=== PATIENT | male | born 1975 | race Caucasian/White ===

== ENCOUNTER → 2020-04-20 09:08 | Outpatient (BNVA) | payer MEDICARE, MEDICAID, SELFPAY | PROVIDERS: PCP Family Medicine; Referring Provider Family Medicine; Visit Provider Internal Medicine Endocrinology, Diabetes & Metabolism | DX: E10.65 Type 1 diabetes mellitus with hyperglycemia (principal); E10.319 Type 1 diabetes mellitus with unspecified diabetic retinopathy without macular edema; E10.21 Type 1 diabetes mellitus with diabetic nephropathy; E55.9 Vitamin D deficiency, unspecified; Z79.899 Other long term (current) drug therapy | CPT/HCPCS: 99212 ==

== ENCOUNTER 2020-04-22 12:02 | Outpatient (REF) | payer MEDICARE, MEDICAID, SELFPAY ==
[2020-04-22 14:38] LABS: Estimated Average Glucose 220 mg/dL; Hemoglobin A1c % 9.3 %
[2020-04-22 15:17] LABS: Alanine Aminotransferase 20 U/L (0-40); Alkaline Phosphatase 59 U/L (39-117); Anion Gap 10 (12-20); Aspartate Amino Transferase 20 U/L (5-37); Bilirubin Total 0.5 mg/dL (0.0-1.0); Blood Urea Nitrogen 23 mg/dL (9-16); Calcium 8.2 mg/dL (8.4-10.2); Carbon Dioxide 32 mmol/L (22-29); Chloride 104 mmol/L (96-108); Cholesterol 136 mg/dL; Estimated Glomerular Filt Rate > 60; Glucose Fasting 288 mg/dL (60-99); HDL Cholesterol 68 mg/dL; LDL Cholesterol Calculated 63 mg/dl; Potassium 4.4 mmol/l (3.3-5.1); Sodium 142 mmol/L (135-145); Total Protein 6.5 g/dL (6.5-8.0); Triglycerides 28 mg/dL
[2020-04-22 15:26] LABS: Vitamin D 25-OH Total 36.6 ng/mL (>30)
[2020-04-22 15:47] LABS: Creatinine Urine 111.78 mg/dL; Microalbum/Creatinine Ratio Ur 13.4 ug/mg cr
[2020-04-22 16:35] LABS: Vitamin B12 430 pg/mL (200-900)
[2020-04-23 10:07] LABS: LDL Cholesterol Direct 50 mg/dL (<100)
== END 2020-04-22 12:03 | disposition home or self-care (01) ==
LOC: HO.10HDL 12:02
PROVIDERS: Visit Provider Internal Medicine Endocrinology, Diabetes & Metabolism
DX: E10.65 Type 1 diabetes mellitus with hyperglycemia (principal); E55.9 Vitamin D deficiency, unspecified
CPT/HCPCS: 80053; 80061; 82043; 82306; 82607; 83036; 83721

== ENCOUNTER 2020-04-28 07:21 | Outpatient (REF) | payer MEDICARE, MEDICAID, SELFPAY | END 2020-04-28 07:22 | disposition home or self-care (01) | LOC: HO.LAB 07:21 | PROVIDERS: Visit Provider Internal Medicine | DX: Z20.828 Contact with and (suspected) exposure to other viral communicable diseases (principal) | CPT/HCPCS: C9803; U0003 ==

== ENCOUNTER 2025-03-18 11:44 | Emergency (ER) | payer MEDICARE, MEDICAID, SELFPAY ==
--- NOTE | ~2025-03-18 | XR_ITS ---
EXAMINATION: XR CHEST CLINICAL INFORMATION: COughing for the past 3 days. COMPARISON: 08/20/2016. TECHNIQUE: PA view of the chest was obtained. FINDINGS: The cardiac, hilar, and mediastinal contours are normal. The lungs demonstrate patchy retrocardiac opacity suspicious for pneumonia. Right lung is clear. No pneumothorax or effusion. No focal osseous or soft tissue abnormality. XR/XR chest 1V IMPRESSION: Patchy retrocardiac opacity suspicious for pneumonia. Electronically signed by: Nicola Wyman MD 03/18/2025 01:31 PM EDT
[2025-03-18 12:10] VITALS: BP 142/65; PULSE 101; RESP 16; TEMP 37; O2SAT 98; BMI 31.8
--- NOTE | 2025-03-18 12:18 | ED.GENADULT ---
HPI - General Adult General Chief complaint: Upper Respiratory Symptoms Stated complaint: Bronchitis? Time Seen by Provider: 03/18/25 14:15 Source: patient Mode of arrival: ambulatory Limitations: no limitations History of Present Illness ED Provider: Primitivo Hampton HPI narrative: 49-year-old male with with history of diabetes, IBS, and GERD presents to the ED for coughing for the past 3 days with green phlegm. Mother denies patient having any fever or chills. Mother states they came from [place] this past November unusually have medical care in [place]. Patient denies any chest pain, shortness of breath, or leg swelling. Patient states no calf pain Related Data Home Medications ?Medication ?Instructions ?Recorded ?Confirmed alcohol swabs pad topical 04/20/20 blood-glucose meter (Accu-Chek #1 ea 04/20/20 Lamar Plus Meter) ferrous sulfate 325 mg (65 mg 325 mg PO DAILY 04/20/20 iron) tablet fluticasone propionate 50 intranasal 04/20/20 mcg/actuation nasal spray,suspension loratadine 10 mg capsule 10 mg PO DAILY 04/20/20 pen needle, diabetic 32 gauge x #50 ea 04/20/20 Previous Rx's ?Medication ?Instructions ?Recorded blood sugar diagnostic (Accu-Chek #200 ea 04/19/20 Lamar Plus test strips) blood sugar diagnostic #200 ea 04/20/20 cholecalciferol (vitamin D3) 50 2,000 unit PO DAILY 30 days #30 04/20/20 mcg (2,000 unit) capsule caps insulin glargine U-300 conc 300 8 unit (0.0267 mL) subcut DAILY 30 04/20/20 unit/mL (1.5 mL) subcutaneous pen days #4.5 mL lancets (Accu-Chek Fastclix Lancet #200 ea 04/20/20 Drum) pantoprazole 40 mg tablet,delayed 40 mg PO DAILY #30 tabs 06/27/20 release methylcellulose (laxative) 500 mg 1,000 mg (2 x 500 mg) PO BID 30 06/30/20 tablet (Citrucel) days #120 tabs insulin lispro 100 unit/mL See Rx Instructions subcut .4 07/21/20 subcutaneous pen (Humalog KwikPen times a day 30 days #15 mL (U-100) Insulin) amoxicillin 875 mg-potassium 1 tab PO Q12H 7 days #14 tabs 03/18/25 clavulanate 125 mg tablet benzonatate 100 mg capsule 100 mg PO TID PRN cough #15 caps 03/18/25 doxycycline hyclate 100 mg capsule 100 mg PO BID 7 days #14 caps 03/18/25 Allergies Allergy/AdvReac Type Severity Reaction Status Date / Time No Known Allergies Allergy Unverified 03/18/25 12:18 onions Allergy Unknown Unknown Uncoded 03/18/25 12:18 Review of Systems Review of Systems: Coughing green phlegm and sneezing Yes all other systems are reviewed and are negative [facility] Past Medical History Medical History (Updated 03/19/25 @ 00:01 by Devon Leiva) Vitamin D deficiency Diabetic nephropathy associated with type 1 diabetes mellitus Diabetic retinopathy associated with type 1 diabetes mellitus Diabetes type 1, uncontrolled Surgical History (Updated 04/18/20 @ 14:42 by ALIZA Salmeron) No pertinent past surgical history Family History Family History (Updated 04/18/20 @ 14:44 by ALIZA Salmeron) Father Diabetes mellitus Social History Social History (Updated 04/18/20 @ 15:50 by BARRETT Galvan) Advance Directives: No Advance Directives Information Provided: No Physical Exam ED Vital Signs: Vital Signs - 24 hr 03/18/25 12:10 03/18/25 14:17 03/18/25 14:36 Temperature 98.6 F 96.8 F 96.8 F Pulse Rate 101 H 79 79 Respiratory Rate 16 18 18 Blood Pressure 142/65 H 155/76 H 155/76 H Pulse Oximetry 98 97 97 Oxygen Delivery Method Room Air Room Air Room Air BMI result Body Mass Index 31.8 Const General: cooperative, healthy appearing, comfortable, no acute distress, well developed, alert, awake and Physically active Orientation/consciousness: patient oriented x3 HENMT Head: Yes normal to inspection, Yes No palpable skull fracture present, Yes normocephalic and Yes atraumatic Ears: hearing grossly normal bilaterally, external ears normal, TM's normal bilaterally, TM normal on the right, TM normal on the left, EAC's normal, mastoids normal and no periauricular adenopathy Throat: Yes posterior oropharynx normal, Yes tonsils normal and Yes uvula midline Eyes General: appearance normal, both eyes and all related structures Neck Neck: Yes normal visual inspection, Yes full ROM, Yes no lymphadenopathy, Yes no meningeal signs, Yes trachea midline, Yes supple, No anterior neck swelling and No tender Chest Chest palpation & inspection: normal inspection of the chest and normal palpation of entire chest wall Resp Effort & Inspection: normal respiratory effort and able to speak in complete sentences Auscultation: clear to auscultation bilaterally Cardio Jugular venous distension: no JVD Heart sounds: S1 normal heart sound present and S2 normal heart sound present GI Inspection: Yes normal to inspection Palpation (GI): Soft to palpation, not firm, nontender, no guarding and not rigid General: Yes no CVA tenderness Back/Spine/Pelvis Back: no CVA tenderness and No back tenderness Skin General skin exam: no rashes or lesions noted, elasticity normal and turgor normal Neuro General: patient oriented x3, gait normal, tone normal, moves all extremities, Normal light touch and pain sensation, no meningeal signs, no focal motor deficits, CN's II-XI intact bilaterally and normal sensation to monofilament Extrem Other: Bilateral lower extremity negative for swelling, pitting edema, or calf tenderness General: Yes normal to inspection, Yes full ROM and Yes capillary refill normal Psych Appearance: grossly normal, well kempt and not disheveled Course Course Course Narrative: RME: 49 year male history of diabetes presents to ED for coughing and sneezing for the past 3 days. Mother states patient has had chronic coughing for the past female with a past 3 daily as worsening. Patient states they are on vacation from [place]. Patient himself denies any chest pain or shortness of breath. No leg swelling calf pain or coughing up blood. Medical Decision Making Medical Decision Making [facility] Narrative: 49-year-old male presents to ED for coughing with sneezing for the past 3 days. Patient denies any chest pain or shortness of breath. Patient's x-ray shows pneumonia. Presently not suspecting PE, [place], CHF, cardiomyopathy, pericarditis, or any other life-threatening etiology. Patient to be discharged antibiotics. Patient well-appearing Differential Diagnosis Differential Diagnoses: The differential diagnosis associated with the presentation includes (Pneumonia bronchitis asthma) Admission/Observation Consideration of admission/observation: Escalation of care including admission/observation considered Lab Data [facility] Lab Attestation statement: I reviewed the patient's lab results. Labs: Lab Results 03/18/25 Range/Units 12:25 COVID-19 (RADHA) Negative (Negative) COVID-19 Clin Com See Note Influenza Type A (NANCY) Negative (Negative) Influenza Type B (NANCY) Negative (Negative) Influenza A & B Note See Note Independent Interpretation I performed an independent interpretation of an: Plain X-Ray Radiology Impression Discussion of test interpretation with radiology: I have reviewed the radiologist's reading. Independent Historian Clinical information obtained from an independent historian. History obtained from or confirmed by: Parent (Mother) and Other Prescription Management I considered prescription management with: Antibiotic Discharge Plan Discharge Clinical Impression: Pneumonia Patient Disposition: Home, Self-Care Instructions: Community Acquired Pneumonia (ED) Additional Instructions: Recommend follow-up with primary care provider. Chest x-ray shows pneumonia. Return to the ED immediately for any chest pain, shortness of breath, weakness, dizziness, or any other concerning symptoms. Ordering Physician: Primitivo Hampton Date of Service: 03/18/25 Procedure(s): XR chest 1V Accession Number(s): [id number] cc: Primitivo Hampton; Physician,None ~ Reason for Exam: COughing for the past 3 days. EXAMINATION: XR CHEST CLINICAL INFORMATION: COughing for the past 3 days. COMPARISON: 08/20/2016. TECHNIQUE: PA view of the chest was obtained. FINDINGS: The cardiac, hilar, and mediastinal contours are normal. The lungs demonstrate patchy retrocardiac opacity suspicious for pneumonia. Right lung is clear. No pneumothorax or effusion. No focal osseous or soft tissue abnormality. XR/XR chest 1V IMPRESSION: Patchy retrocardiac opacity suspicious for pneumonia. Prescriptions: New amoxicillin-pot clavulanate 875-125 mg tablet 1 tab PO Q12H 7 Days Qty: 14 0RF doxycycline hyclate 100 mg capsule 100 mg PO BID 7 Days Qty: 14 0RF benzonatate 100 mg capsule 100 mg PO TID PRN (Reason: cough) Qty: 15 0RF No Action (DME) Accu-Chek Lamar Plus test strp Strip See Rx Instructions .ROUTE .MEDSUPPLY Qty: 200 6RF Rx Instructions: 6 times a day (DME) lancets [Accu-Chek Fastclix Lancet um] [facility] [place] Rx Instructions .ROUTE .MEDSUPPLY Qty: 200 6RF Rx Instructions: 6 times a day pantoprazole 40 mg tablet,delayed release (DR/EC) 40 mg PO DAILY Qty: 30 1RF Citrucel 500 mg tablet 1,000 mg PO BID 30 Days Qty: 120 1RF insulin lispro [Humalog KwikPen Insulin] 100 unit/mL insulin pen See Rx Instructions subcut .4 times a day 30 Days Qty: 15 5RF Rx Instructions: Carb ratio 1-22g, sensitivity 85 mg/dL up to 15 units 4 times a day subcut .4 times a day; (DME) pen needle, diabetic 32 gauge x 5/32 needle See Rx Instructions .ROUTE .MEDSUPPLY Qty: 50 Rx Instructions: As directed alcohol swabs Pads, Medicated topical fluticasone propionate 50 mcg/actuation spray,suspension intranasal loratadine 10 mg capsule 10 mg PO DAILY ferrous sulfate 325 mg (65 mg iron) tablet 325 mg PO DAILY (DME) blood-glucose meter [Accu-Chek Lamar Plus Meter] [facility] [place] Rx Instructions .ROUTE .MEDSUPPLY Qty: 1 Rx Instructions: As directed (DME) blood sugar diagnostic Strip See Rx Instructions .ROUTE .MEDSUPPLY Qty: 200 7RF Rx Instructions: 6 times a day insulin glargine U-300 conc 300 unit/mL (1.5 mL) insulin pen 8 unit subcut DAILY 30 Days Qty: 4.5 6RF cholecalciferol (vitamin D3) 50 mcg (2,000 unit) capsule 2,000 unit PO DAILY 30 Days Qty: 30 6RF Stand Alone Forms: Work/School Release Interventions: ED Discharge Assessment Last Done: 03/18/25 14:36 Discharge Date/Time: 03/18/25 14:37 Print Language: Russian
[2025-03-18 13:05] LABS: COVID-19 Test Negative (Negative); IDNOW Serial# 55D5AD1C; IDNOW Serial# 58CA691E; Influenza B2 Negative (Negative)
[2025-03-18 14:17] VITALS: BP 155/76; PULSE 79; RESP 18; TEMP 36; O2SAT 97
[2025-03-18 14:36] VITALS: BP 155/76; PULSE 79; RESP 18; TEMP 36; O2SAT 97
--- OUTSIDE RECORDS SUMMARY | 2025-03-18 16:10 | XMS_ITS | Clinical Summary ---
Author Organization [email or web address] Address [address] [facility] [address] [place] [address] Care Team Providers Care Pilot Boat Deckhand Name Role Phone Unavailable Primary Care Provider Unavailabl e Social History Tobacco Use Types Packs/Day Years Used Date Smoking Tobacco: Never Assessed Sex and Gender Information Value Date Recorded Sex Assigned at Male 04/16/2022 10:20 AM EDT Legal Sex Male 10:20 AM EDT Gender Identity Not on file Sexual Orientation Not on file Last Filed Vital Signs Vital Sign Reading Time Taken Comments Blood Pressure 98/66 09/02/2019 12:03 AM EDT Pulse 70 09/02/2019 12:03 AM EDT Temperature - - Respiratory Rate - - Oxygen Saturation - - Inhaled Oxygen Concentration - - Weight 61.7 kg (136 lb) 09/02/2019 12:03 AM EDT Height 172.7 cm (5' 8 ) 09/02/2019 12:03 AM EDT Body Mass Index 20.68 09/02/2019 12:03 AM EDT Plan of Treatment Health Maintenance Due Date Last Done Comments CT Colonography 1976 Colonoscopy 1976 Colorectal Cancer Screening 1976 Depression Screening 1976 FIT DNA/Cologuard 1976 FIT 1976 FOBT 1976 Lipid Panel 1976 Sigmoidoscopy 1976 Disability Screening 1976 Alcohol/Substance Use Screening 1988 Tobacco Screening 1988 Family Planning (PISQ) 1991 DTaP/Tdap/Td Vaccines (2 - Td or Tdap) 11/05/2023 11/04/2013, 12/10/2008 COVID-19 Vaccine ( season) 2025 Influenza Vaccine (#1) 2025 0, 06/04/2019, 05/29/2018, Additional history exists Zoster Vaccines (1 of 2) 2026 RSV Patients and Patients Aged 60 years or older (1 - 1-dose 75+ series) 2051 Pneumococcal Vaccine: Pediatrics (0 to 5 Years) and At-Risk Patients (6 to 49) Years Aged Out 08/16/2009 No longer eligible based on patient's age to complete this topic Hepatitis B Vaccines Completed 10/05/2011, 07/03/2011, 05/30/2011 HIB Vaccines Aged Out No longer eligi ble based on patient's age to complete this topic HPV Vaccines Aged Out No longer eligi ble based on patient's age to complete this topic Hepatitis A Vaccines Aged Out No long er eligible based on patient's age to complete this topic IPV Vaccines Aged Out No longer eligi ble based on patient's age to complete this topic Meningococcal B Vaccine Aged Out No l onger eligible based on patient's age to complete this topic Meningococcal Vaccine Aged Out No rudolph chanda eligible based on patient's age to complete this topic RSV under 20 months Aged Out No longe r eligible based on patient's age to complete this topic Rotavirus Vaccines Aged Out No longer eligible based on patient's age to complete this topic
--- OUTSIDE RECORDS SUMMARY | 2025-03-18 16:10 | XMS_ITS | Encounter Summary ---
Author Organization [employer] Address [address] [facility] [address] [place] [address] Care Team Providers Care Bpo Specialist Name Role Phone Fadumo Gibson MD Primary Care Provider [phone] Encounter Details Date Type Department Care Team (Latest Contact Info) Description 09/23/2018 Abstract [facility] CONVERSIONS Dental, Provider, DDS Social History Tobacco Use Types Packs/Day Years Used Date Smoking Tobacco: Never Assessed Sex and Gender Information Value Date Recorded Sex Assigned at Male 04/16/2022 10:20 AM EDT Legal Sex Male 10:20 AM EDT Gender Identity Not on file Sexual Orientation Not on file documented as of this encounter Plan of Treatment Not on file documented as of this encounter Visit Diagnoses Not on filedocumented in this encounter Care Teams Bpo Specialist Relationship Specialty Start Date End Date Fadumo Gibson MD [address] [place] [id number] PCP - General Family Medicine 08/05/12 06/27/23 documented as of this encounter
--- OUTSIDE RECORDS SUMMARY | 2025-03-18 16:10 | XMS_ITS | Encounter Summary ---
Author Organization [employer] Address [address] [facility] [address] [place] [address] Care Team Providers Care Refrigerator Repair Technician Name Role Phone Fadumo Gibson MD Primary Care Provider Encounter Details Date Type Department Care Team (Latest Contact Info) Description 05/08/2019 Abstract [facility] CONVERSIONS Dental, Provider, DDS Social History Tobacco [...] on filedocumented in this encounter Care Teams Refrigerator Repair Technician Relationship Specialty Start Date End Date Fadumo Gibson MD [address] [place] [id number] PCP - General Family Medicine 08/05/12 06/27/23 documented as of this encounter
== END 2025-03-18 14:37 | disposition home or self-care (01) ==
PROVIDERS: Physician Assistant; Emergency Provider Emergency Medicine
DX: J18.9 Pneumonia, unspecified organism (principal); R05.9 Cough, unspecified; Z11.52 Encounter for screening for COVID-19
CPT/HCPCS: 71045; 87502; 87635; 99282; 99283

== ENCOUNTER → 2025-03-18 12:17 | Outpatient (BNV) | payer MEDICARE, MEDICAID, SELFPAY | PROVIDERS: Visit Provider Radiology Diagnostic Radiology | DX: R91.8 Other nonspecific abnormal finding of lung field (principal) | CPT/HCPCS: 71045 ==